=== PATIENT | male | born 1940 | race Caucasian/White ===

== ENCOUNTER 2018-10-22 18:33 | Emergency (ER) | payer MEDICARE, OTHER ==
--- NOTE | 2018-10-22 20:00 | CT ---
CT BRAIN: 10/22/2018 PROVIDED CLINICAL HISTORY: Head injury. FINDINGS: The ventricular system appears normal in size and morphology. There is no evidence for intracranial hemorrhage or mass effect. Left frontal scalp laceration without evidence for skull fracture. IMPRESSION: No evidence for intracranial hemorrhage or skull fracture. POS: [id number]
== END 2018-10-22 19:45 | disposition home or self-care (01) ==
LOC: BURERS 18:33
DX: S01.01XA Laceration without foreign body of scalp, initial encounter (principal); I10 Essential (primary) hypertension; Z79.899 Other long term (current) drug therapy; W19.XXXA Unspecified fall, initial encounter
CPT/HCPCS: 12002; 70450